=== PATIENT | female | born 1955 | race Caucasian/White ===

== ENCOUNTER 2018-06-23 09:07 | Day surgery (SDC) | payer OTHER, SELFPAY ==
--- NOTE | 2018-06-22 20:28 | W.PIPPEYE ---
History of Present Illness Chief Complaint: Progressive decreased vision, right eye Narrative: NOTE: The Chief Complaint, HPI, Past Medical History, Past Surgical History, Family History, Social History, Medications, and complete Ophthalmic Exam with detailed Assessment and Plan have already been documented in the patient's outpatient ophthalmic record and are not covered again in detail here. PFSH Family History Brother Colon cancer Brother Colon cancer Other Diabetes Hypertension Social History Smoking/Tobacco Use Status: Never Alcohol Intake: current Alcohol Intake frequency: a few times a month Alcohol type: wine Drug use: Never Substance use type: does not use Do you feel safe at home: Yes (Lives alone) Meds Home Medications Medication Instructions Recorded Confirmed Type Atorvastatin Calcium 40 mg PO DAILY tab-cap NS 10/04/16 06/21/18 History aspirin [Low Dose Aspirin Ec] 81 mg PO DAILY tab-cap NS 10/04/16 06/21/18 History citalopram [Celexa] 20 mg PO DAILY tab-cap NS 10/04/16 06/21/18 History adalimumab [Humira] 40 mg SUBCUT Q14D 06/20/18 06/21/18 History alendronate 70 mg PO QWEEK 06/20/18 06/21/18 History calcium carb-D3-mag ox-zinc ox 1 tab PO BID 06/20/18 06/21/18 History cyanocobalamin (vitamin B-12) 1,000 mcg PO DAILY 06/20/18 06/21/18 History [Vitamin B-12] enalapril-hydrochlorothiazide 1 tab PO DAILY 06/20/18 06/21/18 History ergocalciferol (vitamin D2) 1 unit PO .TWICE WEEKLY 06/20/18 06/21/18 History [Vitamin D2] Allergies Allergy/AdvReac Type Severity Reaction Status Date / Time shellfish derived Allergy Severe Nausea, Verified 06/21/18 10:59 vomitting acetaminophen [From Percocet] AdvReac Severe Nausea, Unverified 06/21/18 10:59 vomitting oxycodone HCl [From Percocet] AdvReac Severe Nausea, Unverified 06/21/18 10:59 vomitting Note: NOTE:: The details of the planned surgery, including the risks, indications,limitations,expectations,outcome and possible complications were explained to the patient. The patient understands the complications including, but not limited to: infection, hemorrhage, posterior dislocation of the lens or nuclear fragments which may require the intervention of a vitreoretinal surgeon, possible loss of the eye, or from anesthetic complications. The patient has been made aware of the option of not having surgery, that vision following surgery may not be equal to that prior to surgery, and that the planned surgery may not achieve the intended results. Following this discussion, which the patient appeared to understand, the patient wishes to proceed with cataract surgery with lens implantation of the affected eye to improve and maximize vision.
--- NOTE | 2018-06-22 20:37 | W.PIPPEYE ---
History of Present Illness Chief Complaint: Progressive decreased vision, right eye Narrative: The patient is a 63-year-old lady with history of epiretinal membrane of the left eye and bilateral cataracts. She presented with complaints of progressive decreased vision in both eyes at both distance and near, right eye worse than left. She notes significant difficulty with near vision, and notes she needs much more lighting to read. On examination she was noted to have bilateral nuclear cataracts with visual acuity of 20/25 in each eye, but with some glare disability. She was significantly symptomatic that she desires cataract surgery and attempt to improve and maximize her vision. The option of cataract surgery was offered and she wished to proceed. NOTE: The Chief Complaint, HPI, Past Medical History, Past Surgical History, Family History, Social History, Medications, and complete Ophthalmic Exam with detailed Assessment and Plan have already been documented in the patient's outpatient ophthalmic record and are not covered again in detail here. PFSH Family History Brother Colon cancer Brother Colon cancer Other Diabetes Hypertension Social History Smoking/Tobacco Use Status: Never Alcohol Intake: current Alcohol Intake frequency: a few times a month Alcohol type: wine Drug use: Never Substance use type: does not use Do you feel safe at home: Yes (Lives alone) Meds Home Medications Medication Instructions Recorded Confirmed Type Atorvastatin Calcium 40 mg PO DAILY tab-cap NS 10/04/16 06/21/18 History aspirin [Low Dose Aspirin Ec] 81 mg PO DAILY tab-cap NS 10/04/16 06/21/18 History citalopram [Celexa] 20 mg PO DAILY tab-cap NS 10/04/16 06/21/18 History adalimumab [Humira] 40 mg SUBCUT Q14D 06/20/18 06/21/18 History alendronate 70 mg PO QWEEK 06/20/18 06/21/18 History calcium carb-D3-mag ox-zinc ox 1 tab PO BID 06/20/18 06/21/18 History cyanocobalamin (vitamin B-12) 1,000 mcg PO DAILY 06/20/18 06/21/18 History [Vitamin B-12] enalapril-hydrochlorothiazide 1 tab PO DAILY 06/20/18 06/21/18 History ergocalciferol (vitamin D2) 1 unit PO .TWICE WEEKLY 06/20/18 06/21/18 History [Vitamin D2] Allergies Allergy/AdvReac Type Severity Reaction Status Date / Time shellfish derived Allergy Severe Nausea, Verified 06/21/18 10:59 vomitting acetaminophen [From Percocet] AdvReac Severe Nausea, Unverified 06/21/18 10:59 vomitting oxycodone HCl [From Percocet] AdvReac Severe Nausea, Unverified 06/21/18 10:59 vomitting Exam OCULAR EXAM:: Most recent ocular examination is significant for corrected visual acuity of 20/25 in each eye. Intraocular pressure is 19 OD, 20 OS. Extraocular motility is normal. Pupils equal, round, and reactive without afferent pupillary defect slit-lamp exam reveals intermediate anterior chamber depth. Pupils dilated to 5 mm OU. Trace nuclear cataracts OU. Dilated funduscopic examination shows disc cupping of 0.2 OU with normal vessels. The macula is normal in the right eye. There is an epiretinal membrane in the superior nasal macula OS with some thickening and distortion. Peripheral retina and vitreous is normal. BRIGHTNESS ACUITY TESTING (BAT):: Brightness acuity testing of the right eye office is 20/25. Low is 20/40. Medium is 20/30. On the high setting is 20/40. Assessment and Plan (1) Nuclear sclerotic cataract of right eye: Current visit: No Status: Acute Assessment: Visually significant cataract, right eye. Plan: Cataract extraction with intraocular lens implantation, right eye (2) Cortical cataract of right eye: Current visit: No Status: Acute Assessment: Visually significant cataract, right eye. Plan: Cataract extraction with intraocular lens implantation, right eye Note: NOTE:: The details of the planned surgery, including the risks, indications,limitations,expectations,outcome and possible complications were explained to the patient. The patient understands the complications including, but not limited to: infection, hemorrhage, posterior dislocation of the lens or nuclear fragments which may require the intervention of a vitreoretinal surgeon, possible loss of the eye, or from anesthetic complications. The patient has been made aware of the option of not having surgery, that vision following surgery may not be equal to that prior to surgery, and that the planned surgery may not achieve the intended results. Following this discussion, which the patient appeared to understand, the patient wishes to proceed with cataract surgery with lens implantation of the affected eye to improve and maximize vision.
--- NOTE | 2018-06-22 21:26 | W.PM.DSUDISC ---
Discharge Plan Disposition Patient Disposition: HOME Condition: Stable Discharge Details Attending Provider: Armani Moulton Primary Care Provider: JULIETH PALACIOS Home Meds and New Rx's Prescriptions: No Action Atorvastatin Calcium 20 MG tablet 40 mg PO DAILY RF: 0 aspirin [Aspirin Low Dose] 81 MG tablet,delayed release (DR/EC) 81 mg PO DAILY RF: 0 citalopram [Celexa] 20 MG tablet 20 mg PO DAILY RF: 0 alendronate 70 mg Tablet 70 mg PO QWEEK RF: 0 cyanocobalamin (vitamin B-12) [Vitamin B-12] 1,000 mcg Tablet 1,000 mcg PO DAILY RF: 0 enalapril-hydrochlorothiazide 10-25 mg Tablet 1 tab PO DAILY RF: 0 ergocalciferol (vitamin D2) [Vitamin D2] 50,000 unit Capsule 1 unit PO .TWICE WEEKLY RF: 0 Humira 40 mg/0.8 mL Syringe Kit 40 mg SUBCUT Q14D RF: 0 calcium carb-D3-mag ox-zinc ox 333 mg-133 unit -133 mg-5 mg Tablet 1 tab PO BID RF: 0 Discharge Instructions Stand Alone Forms: Post-op Topical Cataract, Jose Husain (DSU) Discharge Orders Discharge Orders: Discharge Order (Routine); Ordered 06/23/18 Ordered By: Armani Moulton DS: Diagnosis Discharge Diagnosis (1) Nuclear sclerotic cataract of right eye: Status: Resolved (2) Cortical cataract of right eye: Status: Resolved (3) Status post cataract extraction and insertion of intraocular lens of right eye: Status: Chronic
[2018-06-23] MEDS: Tetracaine 0.5% 4 ML BTL OD ×4 (09:28→10:30)
[2018-06-23] MEDS: Tropicam./Phenyleph. (1/2.5%) 5 ML BTL OD ×3 (09:29→09:45)
[2018-06-23 09:31] VITALS: BP 143/85; PULSE 67; RESP 18; TEMP 36.3; O2SAT 98
[2018-06-23] MEDS: Lidocaine 2% Jelly 6 ML SYR (10:30)
[2018-06-23] MEDS: Balanced Salt Soln.-PLUS 500 ML BAG (10:38)
[2018-06-23] MEDS: Lidocaine 1% Pres-Free 5 ML VIAL (10:38)
[2018-06-23] MEDS: Povidone-Iodine Ophth 30 ML BTL (10:56)
--- NOTE | 2018-06-23 11:06 | ROE_ITS ---
Date of service: 06/23/18 Time of Service: 11:04 Operative Note DATE OF PROCEDURE: 06/23/18 PRE-OP DIAGNOSIS: n PROCEDURE: Cataract extraction using phacoemulsification with intraocular lens implant, right eye SURGEON: Armani Moulton ANESTHESIA: MAC and local (sub-tenon's anesthetic infiltration) ESTIMATED BLOOD LOSS: 0 PATHOLOGY: none sent COMPLICATIONS: None Patient was transported to: same day Patient's condition: stable Implants: [employer] / [employer] Tecnis ZCB00 intraocular lens Indications: Progressive decreased vision due to cataract, right eye Procedure Description: CATARACT SURGERY OPERATIVE REPORT PREOPERATIVE DIAGNOSIS: Nuclear cataract, right eye POSTOPERATIVE DIAGNOSIS: Same OPERATION: Cataract extraction using phacoemulsification with posterior chamber intraocular lens implant, right eye. IOL: IOL Nuclear Instructor/Model: [employer] / JAYANT Tecnis ZCB00 IOL Power: + 22.50 diopters IOL Serial Number: [id number] Optic Diameter: 6.0mm Haptic/Overall Diameter: 13.0mm PHACO INFO: Jose [employer]urion Vision System with OZil and Active [employer] Cumulative Dispersed Energy (CDE): 8.02 seconds SURGEON: Armani Moulton MD, EMILY ANESTHESIA: Monitored Anesthesia Care (MAC), with local sub-tenon's anesthetic infiltration COMPLICATIONS: None SPECIMENS: None INDICATIONS FOR PROCEDURE: The patient is a 63-year-old lady with history of diminished visual acuity in both eyes secondary to the development of bilateral nuclear cataract. She is significantly symptomatic that she desires cataract surgery and attempt to improve and maximize her vision. PROCEDURE: The correct surgical eye was identified and marked as the right eye and the pupil was dilated in the preoperative area using mydriatics and cycloplegics. The dilated pupil size was 6.0 mm. Oral sedation was administered in the form of an Imprimis MKO Melt (midazolam 3mg/ketamine 25mg/ondansetron 2mg). The patient was brought to the operating room where cardiopulmonary monitoring was instituted and surgical time-out was performed, confirming the correct operative eye and IOL power. Topical anesthesia was administered and ophthalmic povidone-iodine 5% was instilled into the conjunctival fornices. Lidocaine gel was applied to the cornea and the sri-ocular area was prepped with Betadine 10% solution and draped in the usual sterile fashion for intraocular surgery, including an aperture drape. A Tegaderm transparent film dressing was cut in half and used to cover the lashes and lid margins. Care was taken to sequester the lashes and lid margins under the Tegaderm dressing. A lid speculum was placed between the lids of the operative eye and the Elizabeth-Rory operating microscope was maneuvered into position. Emilie scissors were then used to make a conjunctival buttonhole approximately 6mm posterior to the limbus in the inferonasal quadrant. Blunt dissection was carried out to expose bare sclera, and a blunt-tipped sub-tenon?s anesthesia cannula was introduced and passed posteriorly along the globe where non- preserved plain lidocaine was injected into posterior sub-Tenon?s space. A sideport knife was used to make a paracentesis port inferiortemporally, and the anterior chamber was filled with Healon GV. A 2.4mm keratome knife was used to create a half-thickness groove at the limbus and then to construct a three-plane near-clear corneal tunnel extending 2.0mm into clear cornea in the superiortemporal position. . A flap was raised on the anterior capsule and capsulorhexis forceps were used to complete a continuous curvilinear capsulorhexis of 5.0 mm. Balanced salt solution was then used to perform cortical cleaving hydrodissection and nuclear hydrodelineation until the lens could be freely rotated within the capsular bag. The lens nucleus was then disassembled and removed within the capsular bag and iris plane using phacoemulsification. Residual cortical material was removed using the I/A handpiece. The posterior capsule was carefully polished to remove as much residual lens epithelial cells as safely possible. The capsular bag was then inflated and the anterior chamber deepened with viscoelastic. The lens implant described above was inserted into the capsular bag using the JAYANT [place] Injector. A Kuglen hook was used to dial the IOL into position. Residual viscoelastic was then removed first from posterior to the IOL, then from the anterior chamber using the I/A handpiece. The lens implant was noted to center nicely within the capsular bag. The incisions were stromally hydrated, and the anterior chamber was reformed using BSS. Then 0.4cc of moxifloxacin 1.5mg/ml were injected into the capsular bag and anterior chamber. The incisions were checked with a Weck spear and found to be secure. Several drops of ophthalmic povidone-iodine 5% were then applied to the eye followed by two drops of Imprimis combination prednisolone/gatifloxacin/bromfenac solution. The drapes were removed and a clear plastic protective eye shield was placed over the eye. The patient was then returned to Same Day Surgery in stable condition.
[2018-06-23 11:24] VITALS: BP 116/74; PULSE 78; RESP 18; TEMP 36.7; O2SAT 94
== END 2018-06-23 12:20 | disposition home or self-care (01) ==
LOC: SUR 09:08
PROVIDERS: PCP Internal Medicine; Visit Provider Ophthalmology
PROC: (CPT 66984; principal; 2018-06-23 11:30)
DX: H25.11 Age-related nuclear cataract, right eye (principal); I10 Essential (primary) hypertension
CPT/HCPCS: 66984; V2632

== ENCOUNTER 2018-07-07 09:07 | Day surgery (SDC) | payer OTHER, SELFPAY ==
--- NOTE | 2018-07-06 12:35 | POEE_ITS ---
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 She has a history of epiretinal membrane/macular pucker of the left eye. On examination she was noted to have bilateral nuclear cataracts, mild, but significantly symptomatic. She desired cataract surgery and attempt to improve and maximize her vision, which was performed OD on 06/23/2018. Postoperatively she has regained uncorrected vision of 20/30 in the right eye. She now presents for cataract surgery in the left e ye, understanding that postoperative visual acuity will be limited by the presence of her pre-existing maculopathy. NOTE: The Chief Complaint, HPI, Past Medical History, Past Surgical History, Family History, Social History, Medications, and complete Ophthalmic Exam with detailed Assessment and Plan have already been documented in the patient's outpatient ophthalmic record and are not covered again in detail here. [facility] Medical History Epiretinal membrane (ERM) of left eye (Chronic) Nuclear sclerotic cataract of left eye (Acute) Cataract (Chronic) Rheumatoid arthritis (Chronic) Depression Elevated blood pressure reading Osteoporosis Surgical History Status post cataract extraction and insertion of intraocular lens of right eye (Chronic 06/23/18) Colonoscopy - MAC (11/18/16) Social History Smoking/Tobacco Use Status: Never Alcohol Intake: current Alcohol Intake frequency: a few times a month Alcohol type: wine Drug use: Never Substance use type: does not use Do you feel safe at home: Yes (Lives alone) Meds Home Medications Medication Instructions Recorded Confirmed Type Atorvastatin Calcium 40 mg PO DAILY tab-cap NS 10/04/16 06/23/18 History aspirin [Low Dose Aspirin Ec] 81 mg PO DAILY tab-cap NS 10/04/16 06/23/18 History citalopram [Celexa] 20 mg PO DAILY tab-cap NS 10/04/16 06/23/18 History adalimumab [Humira] 40 mg SUBCUT Q14D 06/20/18 06/23/18 History alendronate 70 mg PO QWEEK 06/20/18 06/23/18 History calcium carb-D3-mag ox-zinc ox 1 tab PO BID 06/20/18 06/23/18 History cyanocobalamin (vitamin B-12) 1,000 mcg PO DAILY 06/20/18 06/23/18 History [Vitamin B-12] enalapril-hydrochlorothiazide 1 tab PO DAILY 06/20/18 06/23/18 History ergocalciferol (vitamin D2) 1 unit PO .TWICE WEEKLY 06/20/18 06/23/18 History [Vitamin D2] Allergies Allergy/AdvReac Type Severity Reaction Status Date / Time shellfish derived Allergy Severe Nausea, Verified 06/23/18 09:25 vomitting acetaminophen [From Percocet] AdvReac Severe Nausea, Verified 06/23/18 09:25 vomitting oxycodone HCl [From Percocet] AdvReac Severe Nausea, Verified 06/23/18 09:25 vomitting Exam OCULAR EXAM:: Most recent ocular examination was significant for uncorrected vision of 20/30 in the right eye, corrected vision of 20/30 in the left eye. Intraocular pressure is 19 OD, 20 OS. Extraocular motility is normal. Pupils equal, round, and reactive without afferent pupillary defect slit-lamp examination is significant for a well-positioned PCIOL OD with clear posterior capsule. On the left eye the anterior chamber is of intermediate depth with pupils dilating to 5 mm. Mild nuclear cataract is present OS. Dilated funduscopic examination shows disc cupping of 0.2 OU with normal vessels. The macula in the right eye is normal. There is an epiretinal membrane involving the superior nasal macula in the left eye. Peripheral retina and vitreous is normal. BRIGHTNESS ACUITY TESTING (BAT):: Brightness acuity testing of the left eye of [place] is 20/25. Low is 20/25. Medium is 20/30. On the high setting is 20/25. Assessment and Plan (1) Nuclear sclerotic cataract of left eye: Current visit: No Status: Acute Assessment: Visually significant cataract, left eye. Plan: Cataract extraction with intraocular lens implantation, left eye Note: NOTE:: The details of the planned surgery, including the risks, in dications,limitations,expectations,outcome and possible complications were explained to the patient. The patient understands the complications including, but not limited to: infection, hemorrhage, posterior dislocation of the lens or nuclear fragments which may require the intervention of a vitreoretinal surgeon, possible loss of the eye, or from anesthetic complications. The patient has been made aware of the option of not having surgery, that vision following surgery may not be equal to that prior to surgery, and that the planned surgery may not achieve the intended results. Following this discussion, which the patient appeared to understand, the patient wishes to proceed with cataract surgery with lens implantation of the affected eye to improve and maximize vision.
--- NOTE | 2018-07-07 07:20 | W.PM.DSUDISC ---
Discharge Plan Disposition Patient Disposition: HOME Condition: Stable Discharge Details Attending Provider: Armani Moulton Primary Care Provider: JULIETH PALACIOS Home Meds and New Rx's Prescriptions: No Action Atorvastatin Calcium 20 MG tablet 40 mg PO DAILY RF: 0 aspirin [Aspirin Low Dose] 81 MG tablet,delayed release (DR/EC) 81 mg PO DAILY RF: 0 citalopram [Celexa] 20 MG tablet 20 mg PO DAILY RF: 0 alendronate 70 mg Tablet 70 mg PO QWEEK RF: 0 cyanocobalamin (vitamin B-12) [Vitamin B-12] 1,000 mcg Tablet 1,000 mcg PO DAILY RF: 0 enalapril-hydrochlorothiazide 10-25 mg Tablet 1 tab PO DAILY RF: 0 ergocalciferol (vitamin D2) [Vitamin D2] 50,000 unit Capsule 1 unit PO .TWICE WEEKLY RF: 0 Humira 40 mg/0.8 mL Syringe Kit 40 mg SUBCUT Q14D RF: 0 calcium carb-D3-mag ox-zinc ox 333 mg-133 unit -133 mg-5 mg Tablet 1 tab PO BID RF: 0 Discharge Instructions Stand Alone Forms: Post-op Topical Cataract, Jose Husain (DSU) Discharge Orders Discharge Orders: Discharge Order (Routine); Ordered 07/07/18 Ordered By: Armani Moulton DS: Diagnosis Discharge Diagnosis (1) Nuclear sclerotic cataract of left eye: Status: Resolved (2) Status post cataract extraction and insertion of intraocular lens of left eye: Status: Chronic
[2018-07-07 09:30] VITALS: BP 123/80; PULSE 68; RESP 16; TEMP 36.4; O2SAT 96
[2018-07-07] MEDS: Tetracaine 0.5% 4 ML BTL OS ×4 (09:38→10:48)
[2018-07-07] MEDS: Tropicam./Phenyleph. (1/2.5%) 5 ML BTL OS ×3 (09:38→09:48)
[2018-07-07] MEDS: Balanced Salt Soln.-PLUS 500 ML BAG (10:48)
[2018-07-07] MEDS: Lidocaine 1% Pres-Free 5 ML VIAL (10:48)
[2018-07-07] MEDS: Lidocaine 2% Jelly 6 ML SYR (10:48)
[2018-07-07] MEDS: Povidone-Iodine Ophth 30 ML BTL (10:48)
[2018-07-07] MEDS: Triamcinolone 40 MG/ML VIAL (11:11)
--- NOTE | 2018-07-07 11:19 | W.PM.OP ---
Date of service: 07/07/18 Time of Service: 11:20 Operative Note PRE-OP DIAGNOSIS: Cataract, left eye POST-OP DIAGNOSIS: same PROCEDURE: Cataract extraction using phacoemulsification with intraocular lens implant, left eye SURGEON: Armani Moulton ANESTHESIA: MAC and local (sub-tenon's anesthetic infiltration) PATHOLOGY: none sent COMPLICATIONS: None Patient was transported to: same day Patient's condition: stable Implants: Teofilo [employer] Te[employer] / [employer] Tecnis ZCB00 Indications: Progressive decreased vision due to cataract, left eye Procedure Description: CATARACT SURGERY OPERATIVE REPORT PREOPERATIVE DIAGNOSIS: Nuclear cataract, left eye POSTOPERATIVE DIAGNOSIS: Same OPERATION: Cataract extraction using phacoemulsification with posterior chamber intraocular lens implant, left eye. IOL: IOL Chinchilla Farmer/Model: J[employer]J Vision / JAYANT Tecnis ZCB00 IOL Power: + 22.0 diopters IOL Serial Number: [id number] Optic Diameter: 6.0mm Haptic/Overall Diameter: 13.0mm PHACO INFO: Jose [employer]ion Vision System with OZil and Active [employer]uidics Cumulative Dispersed Energy (CDE): 5.98 seconds SURGEON: Armani Moulton MD, EMILY ANESTHESIA: Monitored Anesthesia Care (MAC), with local sub-tenon's anesthetic infiltration COMPLICATIONS: None SPECIMENS: None INDICATIONS FOR PROCEDURE: The patient is a 63-year-old lady with history of diminished visual acuity in both eyes secondary to the development of bilateral nuclear cataract. She has already undergone cataract surgery in her right eye and is doing well postoperatively. She now presents for cataract surgery in the left eye. She has a history of epiretinal membrane of the left eye. She understands her postoperative visual acuity will be limited by the presence of her pre-existing maculopathy. PROCEDURE: The correct surgical eye was identified and marked as the left eye and the pupil was dilated in the preoperative area using mydriatics and cycloplegics. The dilated pupil size was 6.0 mm. Oral sedation was administered in the form of an Imprimis MKO Melt (midazolam 3mg/ketamine 25mg/ondansetron 2mg). The patient was brought to the operating room where cardiopulmonary monitoring was instituted and surgical time-out was performed, confirming the correct operative eye and IOL power. Topical anesthesia was administered and ophthalmic povidone-iodine 5% was instilled into the conjunctival fornices. Lidocaine gel was applied to the cornea and the sri-ocular area was prepped with Betadine 10% solution and draped in the usual sterile fashion for intraocular surgery, including an aperture drape. A Tegaderm transparent film dressing was cut in half and used to cover the lashes and lid margins. Care was taken to sequester the lashes and lid margins under the Tegaderm dressing. A lid speculum was placed between the lids of the operative eye and the Elizabeth-Rory operating microscope was maneuvered into position. Emilie scissors were then used to make a conjunctival buttonhole approximately 6mm posterior to the limbus in the inferonasal quadrant. Blunt dissection was carried out to expose bare sclera, and a blunt-tipped sub-tenon?s anesthesia cannula was introduced and passed posteriorly along the globe where non-preserved plain lidocaine was injected into posterior sub-Tenon?s space. A sideport knife was used to make a paracentesis port superior/superiortemporal, and the anterior chamber was filled with Healon GV. A 2.4mm keratome knife was used to create a half-thickness groove at the limbus and then to construct a three-plane near-clear corneal tunnel extending 2.0mm into clear cornea in the temporal position. . A flap was raised on the anterior capsule and capsulorhexis forceps were used to complete a continuous curvilinear capsulorhexis of 5.0 mm. Balanced salt solution was then used to perform cortical cleaving hydrodissection and nuclear hydrodelineation until the lens could be freely rotated within the capsular bag. The lens nucleus was then disassembled and removed within the capsular bag and iris plane using phacoemulsification. Residual cortical material was removed using the 45-degree angled silicone I/A tip with 0.3mm port. The posterior capsule was carefully polished to remove as much residual lens epithelial cells as safely possible. The capsular bag was then inflated and the anterior chamber deepened with viscoelastic. The lens implant described above was inserted into the capsular bag using the JAYANT [place] Injector. A Kuglen hook was used to dial the IOL into position. Residual viscoelastic was then removed first from posterior to the IOL, then from the anterior chamber using the I/A handpiece. The lens implant was noted to center nicely within the capsular bag. The incisions were stromally hydrated, and the anterior chamber was reformed using BSS. Then 0.4cc of moxifloxacin 1.5mg/ml were injected into the capsular bag and anterior chamber. The incisions were checked with a Weck spear and found to be secure. Finally, 20 mg of Kenalog in 0.5 cc were injected into the sub-tenon's space using the sub-tenon's anesthesia cannula as prophylaxis against cystoid macular edema due to epiretinal membrane/macular pucker. Several drops of ophthalmic povidone-iodine 5% were then applied to the eye followed by two drops of Imprimis combination prednisolone/gatifloxacin/bromfenac solution. The drapes were removed and a clear plastic protective eye shield was placed over the eye. The patient was then returned to Same Day Surgery in stable condition.
--- NOTE | 2018-07-07 11:22 | ROE_ITS ---
Date of service: 07/07/18 Time of Service: 11:20 Operative Note PRE-OP DIAGNOSIS: Cataract, left eye POST-OP DIAGNOSIS: same PROCEDURE: Cataract extraction using phacoemulsification with intraocular lens implant, left eye SURGEON: Armani Moulton ANESTHESIA: MAC and local (sub-tenon's anesthetic infiltration) PATHOLOGY: none sent COMPLICATIONS: None Patient was transported to: same day Patient's condition: stable Implants: Teofilo and [employer] / [employer] Tecnis ZCB00 Indications: Progressive decreased vision due to cataract, left eye Procedure Description: CATARACT SURGERY OPERATIVE REPORT PREOPERATIVE DIAGNOSIS: Nuclear cataract, left eye POSTOPERATIVE DIAGNOSIS: Same OPERATION: Cataract extraction using phacoemulsification with posterior chamber intraocular lens implant, left eye. IOL: IOL Mangle Tender/Model: J&J Vision / JAYANT Tecnis ZCB00 IOL Power: + 22.0 diopters IOL Serial Number: [id number] Optic Diameter: 6.0mm Haptic/Overall Diameter: 13.0mm PHACO INFO: Jose [employer] Vision System with OZil and [employer]uidics Cumulative Dispersed Energy (CDE): 5.98 seconds SURGEON: Armani Moulton MD, EMILY ANESTHESIA: Monitored Anesthesia Care (MAC), with local sub-tenon's anesthetic infiltration COMPLICATIONS: None SPECIMENS: None INDICATIONS FOR PROCEDURE: The patient is a 63-year-old lady with history of diminished visual acuity in both eyes secondary to the development of bilateral nuclear cataract. She has already undergone cataract surgery in her right eye and is doing well postoperatively. She now presents for cataract surgery in the left eye. She has a history of epiretinal membrane of the left eye. She understands her postoperative visual acuity will be limited by the presence of her pre-existing maculopathy. PROCEDURE: The correct surgical eye was identified and marked as the left eye and the pupil was dilated in the preoperative area using mydriatics and cycloplegics. The dilated pupil size was 6.0 mm. Oral sedation was administered in the form of an Imprimis MKO Melt (midazolam 3mg/ketamine 25mg/ondansetron 2mg). The patient was brought to the operating room where cardiopulmonary monitoring was instituted and surgical time-out was performed, confirming the correct operative eye and IOL power. Topical anesthesia was administered and ophthalmic povidone-iodine 5% was instilled into the conjunctival fornices. Lidocaine gel was applied to the cornea and the sri-ocular area was prepped with Betadine 10% solution and draped in the usual sterile fashion for intraocular surgery, including an aperture drape. A Tegaderm transparent film dressing was cut in half and used to cover the lashes and lid margins. Care was taken to sequester the lashes and lid margins under the Tegaderm dressing. A lid speculum was placed between the lids of the operative eye and the Elizabeth-Rory operating microscope was maneuvere d into position. Emilie scissors were then used to make a conjunctival buttonhole approximately 6mm posterior to the limbus in the inferonasal quadrant. Blunt dissection was carried out to expose bare sclera, and a blunt-tipped sub-tenon?s anesthesia cannula was introduced and passed posteriorly along the globe where non- preserved plain lidocaine was injected into posterior sub-Tenon?s space. A sideport knife was used to make a paracentesis port superior/superiortemporal, and the anterior chamber was filled with Healon GV. A 2.4mm keratome knife was used to create a half-thickness groove at the limbus and then to construct a three-plane near-clear corneal tunnel extending 2.0mm into clear cornea in the temporal position. . A flap was raised on the anterior capsule and capsulorhexis forceps were used to complete a continuous curvilinear capsulorhexis of 5.0 mm. Balanced salt solution was then used to perform cortical cleaving hydrodissection and nuclear hydrodelineation until the lens could be freely rotated within the capsular bag. The lens nucleus was then disassembled and removed within the capsular bag and iris plane using phacoemulsification. Residual cortical material was removed using the 45-degree angled silicone I/A tip with 0.3mm port. The posterior capsule was carefully polished to remove as much residual lens epithelial cells as safely possible. The capsular bag was then inflated and the anterior chamber deepened with viscoelastic. The lens implant described above was inserted into the capsular bag using the JAYANT [place] Injector. A Kuglen hook was used to dial the IOL into position. Residual viscoelastic was then removed first from posterior to the IOL, then from the anterior chamber using the I/A handpiece. The lens implant was noted to center nicely within the capsular bag. The incisions were stromally hydrated, and the anterior chamber was reformed using BSS. Then 0.4cc of moxifloxacin 1.5mg/ml were injected into the capsular bag and anterior chamber. The incisions were checked with a Weck spear and found to be secure. Finally, 20 mg of Kenalog in 0.5 cc were injected into the sub-tenon's space using the sub- tenon's anesthesia cannula as prophylaxis against cystoid macular edema due to epiretinal membrane/macular pucker. Several drops of ophthalmic povidone-iodine 5% were then applied to the eye followed by two drops of Imprimis combination prednisolone/gatifloxacin/bromfenac solution. The drapes were removed and a clear plastic protective eye shield was placed over the eye. The patient was then returned to Same Day Surgery in stable condition.
[2018-07-07 11:45] VITALS: BP 121/69; PULSE 73; RESP 16; TEMP 36.6; O2SAT 94
== END 2018-07-07 12:00 | disposition home or self-care (01) ==
LOC: SUR 09:08
PROVIDERS: PCP Internal Medicine; Visit Provider Ophthalmology
PROC: (CPT 66984; principal; 2018-07-07 11:30)
DX: H25.12 Age-related nuclear cataract, left eye (principal); Z98.41 Cataract extraction status, right eye; Z96.1 Presence of intraocular lens; I10 Essential (primary) hypertension
CPT/HCPCS: 66984; V2632